=== PATIENT | male | born 1975 | race Two or more races ===

== ENCOUNTER 2019-08-16 15:18 | Inpatient (IN) | payer OTHER, SELFPAY ==
[~2019-08-16] VITALS: Ht 170.2 cm; Wt 90.3 kg
--- NOTE | 2019-08-16 15:52 | NUR ---
44 Y/O MALE PRESENTS TO ED WITH C/O "I GET REAL SHORT OF BREATH WHEN I WALK JUST A LITTLE. IT'S BEEN ABOUT 8 DAYS. I'VE ALSO BEEN SEEING DR. ALAN WITH ISSUES FOR THE LAST 8 WEEKS. I FINISHED ANTIBIOTICS AND THEY DIDN'T HELP." PT PLACED ON CONT PULSE OX, NIBP. NADN. NO C/O CP, N/V/D, TRAUMA, SYNCOPE.
[2019-08-16] MEDS ORDERED: SODIUM CHLORIDE 0.9% 1,000ML IVBOLUS ONE (16:00)
[2019-08-16 16:04] LABS: BASOPHILS # (AUTO) 0.09 x10^3/uL (0-0.1); BASOPHILS % (AUTO) 1 % (0-1); EOSINOPHILS # (AUTO) 0.07 x10^3/uL (0-0.4); EOSINOPHILS % (AUTO) 1 % (1-7); LYMPHOCYTES # (AUTO) 2.05 x10^3/uL (1-3.4); LYMPHOCYTES % (AUTO) 16 % (22-44); MD NO; MEAN CORPUSCULAR HEMOGLOBIN 28.3 pg (27.5-34.5); MEAN CORPUSCULAR HGB CONC 33.7 g/dL (33.2-36.2); MEAN CORPUSCULAR VOLUME 84.1 fL (81-97); MEAN PLATELET VOLUME 8.2 fL (7.4-10.4); MONOCYTES # (AUTO) 0.86 x10^3/uL (0.2-0.8); MONOCYTES % (AUTO) 7 % (2-9); NEUTROPHILS # (AUTO) 9.75 x10^3/uL (1.8-6.8); NEUTROPHILS % (AUTO) 76 % (42-75); PLATELET COUNT 272 x10^3/uL (130-400); RED BLOOD COUNT 5.93 x10^6/uL (4.38-5.82); RED CELL DISTRIBUTION WIDTH 13.9 % (9.4-14.8)
[2019-08-16 16:17] LABS: ALANINE AMINOTRANSFERASE 193 U/L (12-78); ALBUMIN 3.7 g/dL (3.4-5.0); ANION GAP 6 mmol/L (5-15); CALCIUM 8.9 mg/dL (8.5-10.1); CHLORIDE 106 mmol/L (98-107); CREATININE 0.88 mg/dL (0.7-1.3)
[2019-08-16 16:20] LABS: ALKALINE PHOSPHATASE 114 U/L (45-117); BILIRUBIN,TOTAL 0.3 mg/dL (0.2-1.0); TOTAL PROTEIN 8.3 g/dL (6.4-8.2)
[2019-08-16 16:46] LABS: TROPONIN I < 0.015 ng/mL (0.000-0.045)
--- NOTE | 2019-08-16 16:55 | NUR ---
PT AMBULATORY WITH STEADY GAIT TO BATHROOM FOR SAMPLE. UA SENT TO LAB. BRUNO. PT REATTACHED TO MONITORS. NO REQUESTS AT THIS TIME.
[2019-08-16 17:03] LABS: MICROSCOPIC NOT IND
--- NOTE | 2019-08-16 18:04 | NUR ---
PT RESTING ON BRUNO. BRUNO. EDMD BEDSIDE. CALLED AND IS WAITING OUTSIDE FOR PT. NO NEEDS REQUESTED AT THIS TIME.
[2019-08-16] MEDS: NS + 20MEQ KCL 1,000 ML IV SCH (18:25)
[2019-08-16] MEDS ORDERED: ONDANSETRON ODT 4 MG PO PRN (18:30)
[2019-08-16] MEDS ORDERED: POLYETHYLENE GLYCOL 17 GM PACKET PO PRN (18:30)
[2019-08-16] MEDS ORDERED: ESOM40CA PO (18:30)
[2019-08-16] MEDS ORDERED: ACETAMINOPHEN 325 MG TABLET PO PRN (18:30)
[2019-08-16] MEDS ORDERED: BISACODYL 10 MG SUPP PR PRN (18:30)
[2019-08-16] MEDS ORDERED: AMIT10TA PO (18:31)
--- NOTE | 2019-08-16 18:53 | NUR ---
BEDSIDE REPORT TO PINA VALLES.
[2019-08-16] MEDS ORDERED: NS + 20MEQ KCL 1,000 ML IV ONE (19:19)
[2019-08-16] MEDS ORDERED: HEPARIN 5,000 UNITS/ML, 1ML ONE (19:19)
[2019-08-16] MEDS: HEPARIN 5,000 UNITS/ML, 1ML SQ SCH (19:31)
--- NOTE | 2019-08-16 20:00 | NUR ---
PT PROVIDED A SANDWICH OF HIS CHOICE FROM THE [employer] FOR DINNER
[2019-08-16] MEDS: AMITRIPTYLINE 10 MG TABLET PO SCH (20:09)
[2019-08-16] MEDS: PANTOPRAZOLE 40MG TABLET PO SCH (20:09)
--- NOTE | 2019-08-16 20:20 | NUR ---
PT SWAPPED INTO HOSPITAL BED. PT DENIED ANY CURRENT WANTS OR NEEDS AFTER.
--- NOTE | 2019-08-16 23:31 | NUR ---
PT SLEEPING IN BED, PT HAS NO WANTS OR NEEDS AT THIS TIME
--- NOTE | 2019-08-17 02:12 | NUR ---
pt sleeping in bed, pt has no c/o at this time
[2019-08-17] MEDS: HEPARIN 5,000 UNITS/ML, 1ML SQ SCH ×3 (02:30→17:37)
[2019-08-17] MEDS ORDERED: NS + 20MEQ KCL 1,000 ML IV ONE (03:34)
--- NOTE | 2019-08-17 03:36 | NUR ---
pt sleeping, pt awoken for medication and pt refused 0230 meds.
[2019-08-17] MEDS: NS + 20MEQ KCL 1,000 ML IV SCH (04:25)
--- NOTE | 2019-08-17 05:17 | NUR ---
PT SLEEPING IN BED, PT HAS NO WANTS OR NEEDS AT THIS TIME.
[2019-08-17 05:42] LABS: BASOPHILS # (AUTO) 0.06 x10^3/uL (0-0.1); BASOPHILS % (AUTO) 1 % (0-1); EOSINOPHILS # (AUTO) 0.12 x10^3/uL (0-0.4); EOSINOPHILS % (AUTO) 1 % (1-7); LYMPHOCYTES # (AUTO) 2.42 x10^3/uL (1-3.4); LYMPHOCYTES % (AUTO) 25 % (22-44); MD NO; MEAN CORPUSCULAR HEMOGLOBIN 28.5 pg (27.5-34.5); MEAN CORPUSCULAR HGB CONC 33.1 g/dL (33.2-36.2); MONOCYTES % (AUTO) 8 % (2-9); NEUTROPHILS # (AUTO) 6.38 x10^3/uL (1.8-6.8); NEUTROPHILS % (AUTO) 65 % (42-75); PLATELET COUNT 241 x10^3/uL (130-400); RED BLOOD COUNT 5.13 x10^6/uL (4.38-5.82); RED CELL DISTRIBUTION WIDTH 13.7 % (9.4-14.8)
[2019-08-17 05:45] LABS: ANION GAP 3 mmol/L (5-15); CALCIUM 8.5 mg/dL (8.5-10.1); CHLORIDE 109 mmol/L (98-107)
[2019-08-17 05:49] LABS: ALANINE AMINOTRANSFERASE 147 U/L (12-78); ALKALINE PHOSPHATASE 90 U/L (45-117); BILIRUBIN,TOTAL 0.6 mg/dL (0.2-1.0); CREATININE 1.02 mg/dL (0.7-1.3); TOTAL PROTEIN 6.7 g/dL (6.4-8.2)
--- NOTE | 2019-08-17 07:48 | NUR ---
REPORT RECEIVED FROM HAI HELLER. ADMITTING MD CALLED ABOUT BLOOD CULTURE ORDERS, AWAITING CALL BACK. WILL HANG IVABX AFTER SPEAKING WITH ADMITTING MD. PT RESTING IN BED, VSS. TO BE [facility] ADMIT, PT AWARE OF POC. CONT TO MONITOR.
--- NOTE | 2019-08-17 08:56 | NUR ---
SPOKE WITH DR. BHATT. BLOOD CULTURES X2 NOW ORDERED, WILL GIVE IVABX AFTER THEY ARE DRAWN.
--- NOTE | 2019-08-17 09:27 | NUR ---
LAB AT BEDSIDE FOR BLOOD CULTURES DRAW.
[2019-08-17] MEDS ORDERED: PANTOPRAZOLE 20MG TABLET ONE (09:38)
[2019-08-17] MEDS ORDERED: CEFTRIAXONE PMX 1GM/50ML 50 ML ONE (09:39)
[2019-08-17] MEDS ORDERED: SENNA/DOCUSATE TABLET ONE (09:39)
[2019-08-17] MEDS ORDERED: HEPARIN 5,000 UNITS/ML, 1ML ONE (09:39)
[2019-08-17] MEDS: SENNA/DOCUSATE TABLET PO SCH (09:46)
[2019-08-17] MEDS: CEFTRIAXONE PMX 1GM/50ML 50 ML IV SCH (09:47)
[2019-08-17] MEDS: PANTOPRAZOLE 40MG TABLET PO SCH ×2 (09:47→23:00)
--- NOTE | 2019-08-17 09:53 | NUR ---
PT MEDICATED PER ORDERS. REMAINS ON MONITORS, VSS. MEAL TRAY GIVEN. PT IS AWARE OF POC. CALL LIGHT IN REACH. CONT TO MONITOR.
--- NOTE | 2019-08-17 10:56 | NUR ---
PT RESTING IN BED, PT REMAINS ON MONITORS, VSS. PT IS AWARE OF POC, TO BE [facility] ADMIT. WILL CONTINUE TO FOLLOW ORDERS.
[2019-08-17 11:25] LABS: C-REACTIVE PROTEIN, QUANT 0.73 mg/dL (0.02-0.49)
[2019-08-17] MEDS ORDERED: DOXYCYCLINE 100MG TABLET ONE (12:39)
[2019-08-17] MEDS: DOXYCYCLINE 100MG TABLET PO SCH ×2 (12:48→22:58)
--- NOTE | 2019-08-17 12:57 | NUR ---
PT GIVEN MEAL TRAY. MEDICATED PER ORDERS. REMAINS ON MONITORS, VSS. AWAITING ADMIT BED, REMAINS ER HOLD. CONT TO MONITOR.
--- NOTE | 2019-08-17 13:45 | NUR ---
PT RESTING IN BED, NO DISTRESS. VSS. PT REMAINS ON MONITORS. AWAITING ADMIT BED. CONT TO MONITOR.
--- NOTE | 2019-08-17 14:46 | NUR ---
REPORT GIVEN TO FLOOR RN. STREP SWAB COLLECTED AND SENT TO LAB. PT UPDATED ON POC, AWARE HE HAS ADMIT BED. PT OK FOR TRANSPORT.
--- NOTE | 2019-08-17 14:59 | NUR ---
PT TRANSFERED TO FLOOR. PT HAS ALL OWN BELONGINGS UPON TRANSFER.
[2019-08-17 15:14] VITALS: BP 135/90
[2019-08-17 20:13] VITALS: BP 153/105
[2019-08-17] MEDS: AMITRIPTYLINE 10 MG TABLET PO SCH (21:00)
[2019-08-17 22:37] VITALS: BP 140/103
[2019-08-18 00:32] VITALS: BP 143/101
[2019-08-18] MEDS: HEPARIN 5,000 UNITS/ML, 1ML SQ SCH ×3 (00:35→16:29)
[2019-08-18 05:07] VITALS: BP 121/84
[2019-08-18] MEDS: CARVEDILOL 12.5 MG TABLET PO SCH ×2 (05:09→18:00)
[2019-08-18 05:58] LABS: CHLORIDE 105 mmol/L (98-107)
[2019-08-18 06:16] LABS: ALANINE AMINOTRANSFERASE 171 U/L (12-78); ALBUMIN 3.5 g/dL (3.4-5.0); ALKALINE PHOSPHATASE 104 U/L (45-117); ANION GAP 5 mmol/L (5-15); BILIRUBIN,TOTAL 0.5 mg/dL (0.2-1.0); CALCIUM 9.5 mg/dL (8.5-10.1); CREATININE 1.11 mg/dL (0.7-1.3); TOTAL PROTEIN 7.9 g/dL (6.4-8.2)
[2019-08-18 07:20] VITALS: BP 131/93
[2019-08-18] MEDS: SENNA/DOCUSATE TABLET PO SCH (09:00)
[2019-08-18] MEDS: DOXYCYCLINE 100MG TABLET PO SCH (09:34)
[2019-08-18] MEDS: PANTOPRAZOLE 40MG TABLET PO SCH (09:34)
[2019-08-18] MEDS: CEFTRIAXONE PMX 1GM/50ML 50 ML IV SCH (12:28)
[2019-08-18 13:00] VITALS: BP 139/97
[2019-08-18] MEDS ORDERED: DOXY100T PO (14:19)
[2019-08-18] MEDS ORDERED: CARV12.52 PO (14:19)
== END 2019-08-18 18:38 | disposition home or self-care (01) | DRG 153 ==
LOC: ED 15:40 → EDIP 18:25 → 4NE 08-17 14:58 → 4NW 08-17 20:55
PROVIDERS: ADMIT Internal Medicine; ATTEND Hospitalist
DX: J06.9 Acute upper respiratory infection, unspecified (principal); E87.1 Hypo-osmolality and hyponatremia; R65.10 Systemic inflammatory response syndrome (SIRS) of non-infectious origin without acute organ dysfunction; J35.01 Chronic tonsillitis; R00.0 Tachycardia, unspecified; E87.6 Hypokalemia; J31.2 Chronic pharyngitis; Z03.818 Encounter for observation for suspected exposure to other biological agents ruled out
CPT/HCPCS: 36415; 71045; 80053; 80074; 81003; 83605; 83615; 83735; 84145; 84484; 85025; 86140; 87040; 87081; 87880; 93005; 99285; G0378; J0696; J1644; J3480; J7030; U0001-CS

== ENCOUNTER 2019-08-24 12:53 | Emergency (ER) | payer OTHER ==
[~2019-08-24] VITALS: Ht 170.2 cm; Wt 91.7 kg
[~2019-08-24 12:53] MED LIST: AMIT10TA PO; CARV12.52 PO; DOXY100T PO; ESOM40CA PO
--- NOTE | 2019-08-24 13:44 | NUR ---
PT CAME IN CO OF SOB AND COUGH. WAS TREATED FOR PNEUNMONIA RECENTLY AND SAYS HE STILL HAS A COUGH. PT 02 SAT IS 98% ON RM AIR
[2019-08-24] MEDS ORDERED: MAALOX/HYOSCYAMINE/LIDOCAINE 45 ML BTL ONE (13:45)
[2019-08-24] MEDS ORDERED: MAALOX/HYOSCYAMINE/LIDOCAINE 45 ML BTL PO ONE (14:00)
[2019-08-24 14:23] LABS: BASOPHILS # (AUTO) 0.04 x10^3/uL (0-0.1); BASOPHILS % (AUTO) 0 % (0-1); EOSINOPHILS # (AUTO) 0.06 x10^3/uL (0-0.4); EOSINOPHILS % (AUTO) 1 % (1-7); LYMPHOCYTES # (AUTO) 1.78 x10^3/uL (1-3.4); LYMPHOCYTES % (AUTO) 19 % (22-44); MD NO; MEAN CORPUSCULAR HEMOGLOBIN 28.5 pg (27.5-34.5); MEAN CORPUSCULAR HGB CONC 33.1 g/dL (33.2-36.2); MEAN CORPUSCULAR VOLUME 86.1 fL (81-97); MEAN PLATELET VOLUME 8.3 fL (7.4-10.4); MONOCYTES # (AUTO) 0.64 x10^3/uL (0.2-0.8); MONOCYTES % (AUTO) 7 % (2-9); NEUTROPHILS % (AUTO) 74 % (42-75); PLATELET COUNT 268 x10^3/uL (130-400); RED BLOOD COUNT 5.82 x10^6/uL (4.38-5.82); RED CELL DISTRIBUTION WIDTH 13.2 % (9.4-14.8)
[2019-08-24 14:28] VITALS: BP 129/84
[2019-08-24 14:37] LABS: ALBUMIN 3.7 g/dL (3.4-5.0); ANION GAP 9 mmol/L (5-15); CHLORIDE 108 mmol/L (98-107)
[2019-08-24 14:40] LABS: ALANINE AMINOTRANSFERASE 206 U/L (12-78); ALKALINE PHOSPHATASE 110 U/L (45-117); BILIRUBIN,TOTAL 0.5 mg/dL (0.2-1.0); CREATININE 0.83 mg/dL (0.7-1.3); TOTAL PROTEIN 8.2 g/dL (6.4-8.2)
== END 2019-08-24 15:38 | disposition home or self-care (01) ==
LOC: ED 14:31
DX: R06.00 Dyspnea, unspecified (principal); R05 Cough
CPT/HCPCS: 36415; 71045; 80053; 85025; 99284

== ENCOUNTER 2019-08-31 18:58 | Emergency (ER) | payer OTHER ==
[~2019-08-31] VITALS: Ht 170.2 cm; Wt 92.3 kg
--- NOTE | 2019-08-31 19:32 | NUR ---
PT TO ED WITH C/O SORE THROAT AND ACHY LEGS. REPORTS THAT HE TESTED NEGATIVE FOR COVID. REPORTS BEING DX WITH PNEUMONIA AND FINISHING ABX. DENIES NO KNOWN SICK CONTACTS. REPORTS MILD SHORTNESS OF BREATH UPON WAKING THIS MORNING. DENIES CHEST PAIN.
[2019-08-31 20:16] LABS: BASOPHILS # (AUTO) 0.04 x10^3/uL (0-0.1); BASOPHILS % (AUTO) 0 % (0-1); EOSINOPHILS # (AUTO) 0.08 x10^3/uL (0-0.4); EOSINOPHILS % (AUTO) 1 % (1-7); LYMPHOCYTES # (AUTO) 2.37 x10^3/uL (1-3.4); LYMPHOCYTES % (AUTO) 24 % (22-44); MD NO; MEAN CORPUSCULAR HEMOGLOBIN 28.4 pg (27.5-34.5); MEAN CORPUSCULAR HGB CONC 33.4 g/dL (33.2-36.2); MEAN CORPUSCULAR VOLUME 84.9 fL (81-97); MEAN PLATELET VOLUME 8.6 fL (7.4-10.4); MONOCYTES # (AUTO) 0.63 x10^3/uL (0.2-0.8); MONOCYTES % (AUTO) 6 % (2-9); NEUTROPHILS # (AUTO) 6.79 x10^3/uL (1.8-6.8); NEUTROPHILS % (AUTO) 69 % (42-75); PLATELET COUNT 260 x10^3/uL (130-400); RED BLOOD COUNT 5.66 x10^6/uL (4.38-5.82); RED CELL DISTRIBUTION WIDTH 13.7 % (9.4-14.8)
[2019-08-31 20:19] LABS: ALBUMIN 3.6 g/dL (3.4-5.0); ANION GAP 7 mmol/L (5-15); CALCIUM 8.9 mg/dL (8.5-10.1); CHLORIDE 108 mmol/L (98-107); CREATININE 0.78 mg/dL (0.7-1.3)
[2019-08-31 20:23] LABS: TROPONIN I < 0.015 ng/mL (0.000-0.045)
[2019-08-31 22:35] VITALS: BP 144/86
== END 2019-08-31 22:37 | disposition home or self-care (01) ==
LOC: ED 22:35
DX: R06.00 Dyspnea, unspecified (principal); R07.89 Other chest pain; J31.2 Chronic pharyngitis
CPT/HCPCS: 36415; 71046; 80048; 82040; 84484; 85025; 87081; 87880; 93005; 99285

== ENCOUNTER → 2019-09-09 | Outpatient (CLI) | payer OTHER ==
[2019-09-09 10:02] LABS: BASOPHILS # (AUTO) 0.04 x10^3/uL (0-0.1); BASOPHILS % (AUTO) 0 % (0-1); EOSINOPHILS # (AUTO) 0.16 x10^3/uL (0-0.4); EOSINOPHILS % (AUTO) 2 % (1-7); LYMPHOCYTES # (AUTO) 1.96 x10^3/uL (1-3.4); LYMPHOCYTES % (AUTO) 20 % (22-44); MD NO; MEAN CORPUSCULAR HGB CONC 33.7 g/dL (33.2-36.2); MEAN CORPUSCULAR VOLUME 86.1 fL (81-97); MEAN PLATELET VOLUME 8.1 fL (7.4-10.4); MONOCYTES # (AUTO) 0.49 x10^3/uL (0.2-0.8); MONOCYTES % (AUTO) 5 % (2-9); NEUTROPHILS # (AUTO) 7.15 x10^3/uL (1.8-6.8); NEUTROPHILS % (AUTO) 73 % (42-75); PLATELET COUNT 257 x10^3/uL (130-400); RED BLOOD COUNT 5.65 x10^6/uL (4.38-5.82); RED CELL DISTRIBUTION WIDTH 13.8 % (9.4-14.8)
[2019-09-09 10:06] LABS: ALANINE AMINOTRANSFERASE 109 U/L (12-78); ALBUMIN 3.4 g/dL (3.4-5.0); ANION GAP 7 mmol/L (5-15); CALCIUM 8.8 mg/dL (8.5-10.1); CHLORIDE 108 mmol/L (98-107); CREATININE 0.76 mg/dL (0.7-1.3)
[2019-09-09 10:16] LABS: ALKALINE PHOSPHATASE 108 U/L (45-117); BILIRUBIN,TOTAL 0.6 mg/dL (0.2-1.0); CHOL/HDL RATIO 3.9; CHOLESTEROL, TOTAL 183 mg/dL (140-239); HDL CHOL % 26 % (26-37); HDL CHOLESTEROL (DIRECT) 47 mg/dL (40-60); LDL CHOLESTEROL,CALCULATED 86 mg/dL (54-169); LDL/HDL RATIO 1.8 (0.5-3.0); TOTAL PROTEIN 7.7 g/dL (6.4-8.2); TRIGLYCERIDES 250 mg/dL (50-200); VLDL CHOLESTEROL 50 mg/dL (0-25)
[2019-09-09 14:22] LABS: ANA SCREEN NEGATIVE (Negative)
== END | disposition home or self-care (01) ==
LOC: LAB 09:10
PROVIDERS: ATTEND Family Medicine
DX: Z13.1 Encounter for screening for diabetes mellitus (principal); J18.8 Other pneumonia, unspecified organism; I10 Essential (primary) hypertension; M25.50 Pain in unspecified joint; R53.83 Other fatigue
CPT/HCPCS: 36415; 71046; 80053; 80061; 82043; 82306; 83036; 84443; 85025; 86038; 86430

== ENCOUNTER → 2019-09-22 | Outpatient (CLI) | payer OTHER | END | disposition home or self-care (01) | LOC: LAB 10:20 | PROVIDERS: ATTEND Family Medicine | DX: R94.5 Abnormal results of liver function studies (principal) | CPT/HCPCS: 36415; 80074 ==

== ENCOUNTER 2019-10-19 10:38 | Emergency (ER) | payer OTHER ==
[~2019-10-19] VITALS: Ht 170.2 cm; Wt 90.8 kg
--- NOTE | 2019-10-19 11:05 | NUR ---
PT REPORTS CHEST PAIN IN CENTER X1 DAY, ALSO OCCASIONAL COUGH AND PHLEMG, AND SOB. PLACED ON CARDIAC AND VITALS SIGNS MONITORS. CALL LIGHT PLACED WITHIN REACH.
[2019-10-19] MEDS ORDERED: MAALOX/HYOSCYAMINE/LIDOCAINE 45 ML BTL ONE (11:27)
--- NOTE | 2019-10-19 11:32 | NUR ---
XRAY AT BEDSIDE.
[2019-10-19] MEDS ORDERED: MAALOX/HYOSCYAMINE/LIDOCAINE 45 ML BTL PO ONE (12:00)
--- NOTE | 2019-10-19 12:06 | NUR ---
PT REPORTS PAIN IN THROAT. REPORTED TO ERMD FOR EVAL.
[2019-10-19 12:17] LABS: TROPONIN I < 0.015 ng/mL (0.000-0.045)
[2019-10-19 12:36] VITALS: BP 117/89
== END 2019-10-19 13:00 | disposition home or self-care (01) ==
LOC: ED 11:47
DX: R07.89 Other chest pain (principal); R94.31 Abnormal electrocardiogram [ECG] [EKG]; R06.02 Shortness of breath; J02.9 Acute pharyngitis, unspecified
CPT/HCPCS: 36415; 71045; 84484; 87081; 93005; 99285

== ENCOUNTER 2019-11-02 20:11 | Emergency (ER) | payer OTHER ==
[~2019-11-02] VITALS: Ht 170.2 cm; Wt 91.0 kg
[2019-11-02 21:55] LABS: BASOPHILS # (AUTO) 0.04 x10^3/uL (0-0.1); BASOPHILS % (AUTO) 0 % (0-1); EOSINOPHILS # (AUTO) 0.12 x10^3/uL (0-0.4); EOSINOPHILS % (AUTO) 1 % (1-7); LYMPHOCYTES # (AUTO) 2.67 x10^3/uL (1-3.4); LYMPHOCYTES % (AUTO) 25 % (22-44); MD NO; MEAN CORPUSCULAR HEMOGLOBIN 28.9 pg (27.5-34.5); MEAN CORPUSCULAR HGB CONC 33.3 g/dL (33.2-36.2); MEAN CORPUSCULAR VOLUME 86.7 fL (81-97); MEAN PLATELET VOLUME 8.2 fL (7.4-10.4); MONOCYTES # (AUTO) 0.83 x10^3/uL (0.2-0.8); MONOCYTES % (AUTO) 8 % (2-9); NEUTROPHILS # (AUTO) 7.11 x10^3/uL (1.8-6.8); NEUTROPHILS % (AUTO) 66 % (42-75); PLATELET COUNT 272 x10^3/uL (130-400); RED BLOOD COUNT 5.37 x10^6/uL (4.38-5.82); RED CELL DISTRIBUTION WIDTH 13.7 % (9.4-14.8)
[2019-11-02 22:03] LABS: ALBUMIN 3.7 g/dL (3.4-5.0); ANION GAP 5 mmol/L (5-15); CALCIUM 9.1 mg/dL (8.5-10.1); CHLORIDE 110 mmol/L (98-107)
--- NOTE | 2019-11-02 22:03 | NUR ---
PT TO ROOM FROM LOBBY
[2019-11-02 22:08] LABS: ALANINE AMINOTRANSFERASE 92 U/L (12-78); ALKALINE PHOSPHATASE 110 U/L (45-117); BILIRUBIN,TOTAL 0.4 mg/dL (0.2-1.0); CREATININE 0.75 mg/dL (0.7-1.3); TOTAL PROTEIN 7.9 g/dL (6.4-8.2)
--- NOTE | 2019-11-02 22:12 | NUR ---
CP STARTED YESTERDAY, NON RADIATING. 07/31, STERNAL IN LOCATION. DENIES N/V. DENIES CARDIAC HX
[2019-11-02 22:53] LABS: TROPONIN I < 0.015 ng/mL (0.000-0.045)
[2019-11-02 23:13] VITALS: BP 132/74
== END 2019-11-02 23:15 ==
LOC: ED 23:09
DX: R07.89 Other chest pain (principal); R05 Cough
CPT/HCPCS: 36415; 71046; 80053; 84484; 85025; 93005; 99285

== ENCOUNTER → 2019-12-13 | Outpatient (CLI) | payer OTHER ==
[2019-12-13 09:15] LABS: ALANINE AMINOTRANSFERASE 58 U/L (12-78); ALBUMIN 3.5 g/dL (3.4-5.0); ANION GAP 8 mmol/L (5-15); CALCIUM 9.3 mg/dL (8.5-10.1); CHLORIDE 107 mmol/L (98-107); CHOLESTEROL, TOTAL 176 mg/dL (140-239); CREATININE 0.83 mg/dL (0.7-1.3); TRIGLYCERIDES 225 mg/dL (50-200); VLDL CHOLESTEROL 45 mg/dL (0-25)
[2019-12-13 09:17] LABS: ALKALINE PHOSPHATASE 120 U/L (45-117); BILIRUBIN,TOTAL 0.4 mg/dL (0.2-1.0); CHOL/HDL RATIO 3.3; HDL CHOL % 30 % (26-37); HDL CHOLESTEROL (DIRECT) 53 mg/dL (40-60); LDL CHOLESTEROL,CALCULATED 78 mg/dL (54-169); LDL/HDL RATIO 1.5 (0.5-3.0); TOTAL PROTEIN 7.9 g/dL (6.4-8.2)
[2019-12-13 09:20] LABS: BASOPHILS # (AUTO) 0.05 x10^3/uL (0-0.1); BASOPHILS % (AUTO) 0 % (0-1); EOSINOPHILS # (AUTO) 0.14 x10^3/uL (0-0.4); EOSINOPHILS % (AUTO) 1 % (1-7); LYMPHOCYTES # (AUTO) 2.46 x10^3/uL (1-3.4); LYMPHOCYTES % (AUTO) 20 % (22-44); MD NO; MEAN CORPUSCULAR HEMOGLOBIN 28.7 pg (27.5-34.5); MEAN CORPUSCULAR VOLUME 87.2 fL (81-97); MEAN PLATELET VOLUME 7.8 fL (7.4-10.4); MONOCYTES # (AUTO) 0.79 x10^3/uL (0.2-0.8); MONOCYTES % (AUTO) 6 % (2-9); NEUTROPHILS # (AUTO) 8.95 x10^3/uL (1.8-6.8); NEUTROPHILS % (AUTO) 72 % (42-75); PLATELET COUNT 271 x10^3/uL (130-400); RED BLOOD COUNT 5.54 x10^6/uL (4.38-5.82); RED CELL DISTRIBUTION WIDTH 13.3 % (9.4-14.8)
== END | disposition home or self-care (01) ==
LOC: LAB 08:47
PROVIDERS: ATTEND Family Medicine
DX: E78.1 Pure hyperglyceridemia (principal); D72.9 Disorder of white blood cells, unspecified; E55.9 Vitamin D deficiency, unspecified
CPT/HCPCS: 36415; 80053; 80061; 82306; 85025

== ENCOUNTER → 2020-01-17 | Outpatient (CLI) | payer OTHER ==
[2020-01-17 08:49] LABS: BASOPHILS % (AUTO) 1 % (0-1); EOSINOPHILS % (AUTO) 3 % (1-7); LYMPHOCYTES % (AUTO) 19 % (22-44); MEAN CORPUSCULAR HEMOGLOBIN 28.9 pg (27.5-34.5); MEAN CORPUSCULAR HGB CONC 33.4 g/dL (33.2-36.2); MEAN PLATELET VOLUME 8.2 fL (7.4-10.4); MONOCYTES % (AUTO) 7 % (2-9); NEUTROPHILS % (AUTO) 70 % (42-75); PLATELET COUNT 256 x10^3/uL (130-400); RED CELL DISTRIBUTION WIDTH 13.5 % (9.4-14.8)
[2020-01-17 09:01] LABS: MD NO
== END | disposition home or self-care (01) ==
LOC: LAB 08:27
PROVIDERS: ATTEND Family Medicine
DX: D72.829 Elevated white blood cell count, unspecified (principal)
CPT/HCPCS: 36415; 85025

== ENCOUNTER 2020-02-08 16:32 | Emergency (ER) | payer SELFPAY ==
[~2020-02-08] VITALS: Ht 170.2 cm; Wt 91.8 kg
[2020-02-08 16:36] VITALS: BP 140/94
[2020-02-08 17:38] LABS: BASOPHILS % (AUTO) 0 % (0-1); EOSINOPHILS % (AUTO) 0 % (1-7); LYMPHOCYTES % (AUTO) 13 % (22-44); MEAN CORPUSCULAR HGB CONC 32.9 g/dL (33.2-36.2); MONOCYTES % (AUTO) 9 % (2-9); NEUTROPHILS % (AUTO) 78 % (42-75); PLATELET COUNT 295 x10^3/uL (130-400); RED BLOOD COUNT 5.76 x10^6/uL (4.38-5.82); RED CELL DISTRIBUTION WIDTH 13.2 % (9.4-14.8)
[2020-02-08 17:44] LABS: ALBUMIN 3.6 g/dL (3.4-5.0); ANION GAP 5 mmol/L (5-15); CALCIUM 9.2 mg/dL (8.5-10.1); CHLORIDE 105 mmol/L (98-107)
[2020-02-08 17:47] LABS: ALANINE AMINOTRANSFERASE 51 U/L (12-78); ALKALINE PHOSPHATASE 140 U/L (45-117); BILIRUBIN,TOTAL 0.5 mg/dL (0.2-1.0); CREATININE 0.78 mg/dL (0.7-1.3); TOTAL PROTEIN 8.2 g/dL (6.4-8.2)
[2020-02-08 17:53] LABS: MD NO
--- NOTE | 2020-02-08 18:21 | NUR ---
PT CAME IN CO OF BLEEDING AFTER A TONSILECTOMY. NOT CURRENTLY BLEEDING AT THIS TIME. WILL CONTINUE TO MONITOR
[2020-02-08] MEDS ORDERED: RACEPINEPHRINE INH 2.25%, 0.5ML NPPB ONE (18:30)
--- NOTE | 2020-02-08 19:56 | NUR ---
BREAK RN: PT. TO BE D/C HOME; AWAITING PAPERS.
== END 2020-02-08 20:17 | disposition home or self-care (01) ==
LOC: ED 19:58
DX: J95.89 Other postprocedural complications and disorders of respiratory system, not elsewhere classified (principal); I10 Essential (primary) hypertension; Z90.89 Acquired absence of other organs
CPT/HCPCS: 36415; 80053; 85025; 94640; 99283

== ENCOUNTER 2020-03-08 12:32 | Emergency (ER) | payer OTHER ==
[~2020-03-08] VITALS: Ht 170.2 cm; Wt 89.3 kg
[2020-03-08 13:12] LABS: BASOPHILS % (AUTO) 1 % (0-1); EOSINOPHILS % (AUTO) 1 % (1-7); LYMPHOCYTES % (AUTO) 13 % (22-44); MEAN CORPUSCULAR HEMOGLOBIN 28.4 pg (27.5-34.5); MEAN CORPUSCULAR HGB CONC 33.3 g/dL (33.2-36.2); MEAN PLATELET VOLUME 7.6 fL (7.4-10.4); MONOCYTES % (AUTO) 9 % (2-9); NEUTROPHILS % (AUTO) 78 % (42-75); PLATELET COUNT 264 x10^3/uL (130-400); RED BLOOD COUNT 5.72 x10^6/uL (4.38-5.82); RED CELL DISTRIBUTION WIDTH 13.9 % (9.4-14.8)
[2020-03-08 13:22] LABS: MD NO
[2020-03-08 13:24] LABS: ALBUMIN 3.5 g/dL (3.4-5.0); ANION GAP 4 mmol/L (5-15); CHLORIDE 107 mmol/L (98-107)
[2020-03-08 13:29] LABS: ALANINE AMINOTRANSFERASE 60 U/L (12-78); ALKALINE PHOSPHATASE 128 U/L (45-117); BILIRUBIN,TOTAL 0.5 mg/dL (0.2-1.0); CREATININE 0.91 mg/dL (0.7-1.3); TOTAL PROTEIN 8.1 g/dL (6.4-8.2); TROPONIN I < 0.015 ng/mL (0.000-0.045)
[2020-03-08 13:56] VITALS: BP_DIAS 74
[2020-03-08 14:23] VITALS: BP_SYST 116
== END 2020-03-08 14:36 | disposition home or self-care (01) ==
LOC: ED 14:13
DX: R07.89 Other chest pain (principal); R06.00 Dyspnea, unspecified; I10 Essential (primary) hypertension; Z90.89 Acquired absence of other organs
CPT/HCPCS: 36415; 71045; 80053; 84484; 85025; 93005; 99285

== ENCOUNTER 2020-03-13 09:24 | Day surgery (SDC) | payer OTHER ==
[~2020-03-13] VITALS: Ht 170.2 cm; Wt 89.1 kg
[2020-03-13] MEDS ORDERED: SODIUM CHLORIDE 0.9% 1,000 ML IV SCH ×2 (10:00→14:00)
[2020-03-13] MEDS ORDERED: BUDE10.2 INH (10:17)
[2020-03-13] MEDS ORDERED: PRED10TA PO (10:17)
[2020-03-13] MEDS ORDERED: ALBU6.7H8 INH (10:17)
[2020-03-13] MEDS ORDERED: ERGO500017 PO (10:17)
[2020-03-13 10:25] VITALS: BP 131/86
[2020-03-13] MEDS ORDERED: HYOS0.1282 PO (10:25)
[2020-03-13] MEDS ORDERED: PLEASE ENTER HEIGHT AND WEIGHT MC SCH (10:30)
[2020-03-13 10:43] LABS: ANION GAP 5 mmol/L (5-15); CALCIUM 9.1 mg/dL (8.5-10.1); CHLORIDE 108 mmol/L (98-107); CREATININE 0.84 mg/dL (0.7-1.3)
[2020-03-13 10:55] LABS: BASOPHILS % (AUTO) 1 % (0-1); EOSINOPHILS % (AUTO) 1 % (1-7); LYMPHOCYTES % (AUTO) 19 % (22-44); MEAN CORPUSCULAR HEMOGLOBIN 28.7 pg (27.5-34.5); MEAN CORPUSCULAR HGB CONC 33.7 g/dL (33.2-36.2); MONOCYTES % (AUTO) 7 % (2-9); NEUTROPHILS % (AUTO) 73 % (42-75); PLATELET COUNT 230 x10^3/uL (130-400); RED BLOOD COUNT 5.45 x10^6/uL (4.38-5.82)
[2020-03-13 11:10] LABS: MD NO
[2020-03-13] MEDS ORDERED: LIDOCAINE 1%, 20ML ONE (13:21)
[2020-03-13] MEDS ORDERED: VERAPAMIL 2.5 MG/ML, 2ML ONE (13:21)
[2020-03-13] MEDS ORDERED: FENTANYL PF 100 MCG/2ML ONE (13:21)
[2020-03-13] MEDS ORDERED: MIDAZOLAM 1 MG/ML, 5ML ONE (13:21)
[2020-03-13] MEDS ORDERED: BIVALIRUDIN 250 MG ONE (13:22)
== END 2020-03-13 15:44 | disposition home or self-care (01) ==
LOC: CACL 09:24
PROVIDERS: ATTEND Internal Medicine Cardiovascular Disease
DX: R07.89 Other chest pain (principal); I10 Essential (primary) hypertension; E78.5 Hyperlipidemia, unspecified; Z79.899 Other long term (current) drug therapy; Z98.890 Other specified postprocedural states
CPT/HCPCS: 36415; 80048; 85025; 93458; 99156; C1894; J2250; J3010; Q9967; J0583

== ENCOUNTER → 2020-03-15 | Outpatient (CLI) | payer OTHER ==
[~2020-03-15] MED LIST changes: +ALBU6.7H8 INH; +BUDE10.2 INH; +ERGO500017 PO; +HYOS0.1282 PO; +PRED10TA PO
[2020-03-15 10:07] LABS: ALANINE AMINOTRANSFERASE 62 U/L (12-78); ALBUMIN 3.4 g/dL (3.4-5.0); ANION GAP 4 mmol/L (5-15); CALCIUM 9.1 mg/dL (8.5-10.1); CHLORIDE 109 mmol/L (98-107); CREATININE 0.84 mg/dL (0.7-1.3)
[2020-03-15 10:09] LABS: ALKALINE PHOSPHATASE 109 U/L (45-117); BILIRUBIN,TOTAL 0.4 mg/dL (0.2-1.0); CHOL/HDL RATIO 3.6; CHOLESTEROL, TOTAL 207 mg/dL (140-239); HDL CHOL % 28 % (26-37); HDL CHOLESTEROL (DIRECT) 58 mg/dL (40-60); LDL CHOLESTEROL,CALCULATED 121 mg/dL (54-169); LDL/HDL RATIO 2.1 (0.5-3.0); TOTAL PROTEIN 7.9 g/dL (6.4-8.2); TRIGLYCERIDES 140 mg/dL (50-200); VLDL CHOLESTEROL 28 mg/dL (0-25)
== END | disposition home or self-care (01) ==
LOC: LAB 09:35
PROVIDERS: ATTEND Family Medicine
DX: I10 Essential (primary) hypertension (principal)
CPT/HCPCS: 36415; 80053; 80061; 82043